=== PATIENT | male | born 1995 | race Caucasian/White ===

== ENCOUNTER 2019-09-04 21:59 | Emergency (ER) | payer MEDICAID ==
[~2019-09-04] VITALS: Ht 188 cm; Wt 89.1 kg
[2019-09-04 22:07] VITALS: BP 122/66; TEMP 97.6
[2019-09-04] MEDS ORDERED: FENTANYL 12MCG TD (22:58)
[2019-09-04] MEDS ORDERED: PROTONIX20 MG PO (22:58)
[2019-09-04] MEDS ORDERED: PERCOCET 325 MG1 TA2 PO (22:58)
[2019-09-04 23:02] LABS: MUCOUS Present /lpf; PH 6 (5-8); SQUAMOUS EPITHELIAL None Seen /hpf; URINE APPEARANCE Hazy; URINE BACTERIA None Seen /hpf; URINE BILIRUBIN Negative (NEGATIVE); URINE BLOOD 1+ (NEGATIVE); URINE COLOR Yellow; URINE GLUCOSE Negative (NEGATIVE); URINE KETONE Negative (NEGATIVE); URINE LEUKOCYTE ESTERASE 2+ (NEGATIVE); URINE NITRATE Negative (NEGATIVE); URINE PROTEIN(semi-quant) 1+ (NEGATIVE)
[2019-09-04 23:03] LABS: COLLECTION METHOD CATHETER
[2019-09-04 23:04] LABS: BASO % 0.4 % (0.0-2.0); EOS # 0.1 (0.0-0.7); GRAN # 5.1 (1.4-6.5); GRAN % 65.3 % (42.2-75.2); HEMATOCRIT 45.1 % (42.0-52.0); HEMOGLOBIN 15.3 g/dl (13.5-18.0); LYMPH # 1.9 (1.2-3.4); LYMPH % 24.5 % (20.0-51.0); MEAN CELL VOLUME 91 fl (80.0-100.0); MEAN CORPUSCULAR HEMOGLOBIN 31 pg (27.0-31.0); MEAN CORPUSCULAR HGB CONC 34 g/dl (33.0-37.0); MEAN PLATELET VOLUME 10.4 fl (7.4-10.4); MONO # 0.7 (0.1-0.6); MONO % 8.5 % (1.7-9.3); PLATELET COUNT 162 K/mm3 (130-400); RED BLOOD COUNT 4.97 M/mm3 (4.20-5.60); REDCELL DISTRIBUTION WIDTH-CV 13.2 % (11.5-14.5)
[2019-09-04 23:15] LABS: ALBUMIN 4.2 gm/dL (3.5-5.0); BILIRUBIN,TOTAL 0.4 mg/dL (0.0-1.0); C-REACTIVE PROTEIN 0.7 mg/dL (0.0-0.9); CALCIUM 9.3 mg/dL (8.4-10.2); CREATININE, serum 0.66 (0.66-1.25); POTASSIUM 3.6 mmol/L (3.4-5.0); TOTAL PROTEIN 7.2 gm/dL (6.4-8.2)
[2019-09-05] MEDS ORDERED: OMNICEF 300MG300 MG PO (00:21)
[2019-09-05 00:44] VITALS: PULSE 60
[2019-09-07] MEDS ORDERED: CIPRO 500MG TA500 MG PO (14:40)
== END 2019-09-05 00:44 | disposition home or self-care (01) ==
LOC: COL.ER 21:59
PROVIDERS: Physician Assistant
DX: N12 Tubulo-interstitial nephritis, not specified as acute or chronic (principal); F17.210 Nicotine dependence, cigarettes, uncomplicated
CPT/HCPCS: A4216; J0696; J2405; J7030; Q9967

== ENCOUNTER 2019-11-17 19:20 | Emergency (ER) | payer MEDICAID ==
[~2019-11-17] VITALS: Ht 188 cm; Wt 87.7 kg
[~2019-11-17 19:20] MED LIST: CIPRO 500MG TA500 MG PO; FENTANYL 12MCG TD; OMNICEF 300MG300 MG PO; PERCOCET 325 MG1 TA2 PO; PROTONIX20 MG PO
[2019-11-17 19:23] VITALS: TEMP 97.3
[2019-11-17] MEDS ORDERED: MS CONTIN 660 MG/TAB PO (20:18)
[2019-11-17 20:23] LABS: COLLECTION METHOD CATHETER
[2019-11-17 20:33] LABS: MUCOUS Present /lpf; PH 6 (5-8); SQUAMOUS EPITHELIAL 0-2 /hpf; URINE APPEARANCE Clear; URINE BACTERIA None Seen /hpf; URINE BILIRUBIN Negative (NEGATIVE); URINE BLOOD Negative (NEGATIVE); URINE COLOR Yellow; URINE GLUCOSE Negative (NEGATIVE); URINE KETONE Negative (NEGATIVE); URINE LEUKOCYTE ESTERASE Negative (NEGATIVE); URINE NITRATE Negative (NEGATIVE); URINE PROTEIN(semi-quant) Negative (NEGATIVE); URINE RBC 0-2 /hpf; URINE UROBILINOGEN Negative (NEGATIVE)
[2019-11-17 20:51] LABS: BASO % 0.3 % (0.0-2.0); EOS % 0.6 % (0-4.0); GRAN # 4.9 (1.4-6.5); GRAN % 70.6 % (42.2-75.2); HEMATOCRIT 44.6 % (42.0-52.0); HEMOGLOBIN 15.1 g/dl (13.5-18.0); LYMPH # 1.3 (1.2-3.4); MEAN CELL VOLUME 88 fl (80.0-100.0); MEAN CORPUSCULAR HEMOGLOBIN 30 pg (27.0-31.0); MEAN CORPUSCULAR HGB CONC 34 g/dl (33.0-37.0); MEAN PLATELET VOLUME 10.4 fl (7.4-10.4); MONO # 0.6 (0.1-0.6); MONO % 9.2 % (1.7-9.3); PLATELET COUNT 146 K/mm3 (130-400); RED BLOOD COUNT 5.09 M/mm3 (4.20-5.60); REDCELL DISTRIBUTION WIDTH-CV 13.2 % (11.5-14.5)
[2019-11-17 21:18] LABS: ALANINE AMINOTRANSFERASE 44 U/L (21-72); ALBUMIN 4.2 gm/dL (3.5-5.0); ALKALINE PHOSPHATASE 74 U/L (50-136); ANION GAP 9 mmol/L (7-16); AST,SGOT 35 U/L (15-37); BILIRUBIN,TOTAL 0.6 mg/dL (0.0-1.0); BLOOD UREA NITROGEN 14 mg/dL (9-20); CALCIUM 9.5 mg/dL (8.4-10.2); CARBON DIOXIDE 25 mmol/L (22-30); CHLORIDE 107 mmol/L (98-107); CREATININE, serum 0.52 (0.66-1.25); GLUCOSE 95 mg/dL (74-106); SODIUM 141 mmol/L (137-145); TOTAL PROTEIN 7.5 gm/dL (6.4-8.2)
[2019-11-17 22:33] VITALS: BP 95/40; PULSE 63
[2019-11-17] MEDS ORDERED: FLEXERIL 1010 MG/TAB PO (22:33)
[2019-11-17 22:45] LABS: C-REACTIVE PROTEIN < 0.5 mg/dL (0.0-0.9)
== END 2019-11-17 22:33 | disposition home or self-care (01) ==
LOC: COL.ER 19:20
PROVIDERS: Emergency Medicine
DX: M54.5 Low back pain (principal); G89.29 Other chronic pain
CPT/HCPCS: J1170; J1885

== ENCOUNTER 2024-04-22 12:45 | Outpatient (RCR) | payer MEDICAID ==
[~2024-04-22 12:45] MED LIST changes: +FLEXERIL 1010 MG/TAB PO; +MS CONTIN 660 MG/TAB PO
== END 2024-04-23 | disposition home or self-care (01) ==
LOC: WSPT
DX: T14.90XD Injury, unspecified, subsequent encounter (principal)

== ENCOUNTER 2024-05-22 12:45 | Outpatient (RCR) | payer MEDICAID | END 2024-05-24 | disposition home or self-care (01) | LOC: WSPT | DX: T14.90XD Injury, unspecified, subsequent encounter (principal); X58.XXXD Exposure to other specified factors, subsequent encounter ==